=== PATIENT | female | born 1945 | race Caucasian/White ===

== ENCOUNTER 2019-09-18 07:48 | Outpatient (CLI) | payer MEDICARE, SELFPAY ==
--- NOTE | ~2019-09-18 | US_ITS ---
EXAMINATION: US venous doppler LE RT DATE: 09/18/2019 08:23 INDICATION: Right lower limb pain and swelling. TECHNIQUE: Grayscale ultrasound images without and with compression and Doppler ultrasound images of the right lower extremity veins were obtained. COMPARISON: None. FINDINGS: The visualized portions of right common femoral vein, profunda (deep) femoral vein, femoral vein, pop liteal vein, peroneal trunk, posterior tibial veins, peroneal veins, gastrocnemius vein and greater s aphenous vein outflow are patent. IMPRESSION: 1. No deep venous thrombosis in the right lower limb. Reviewed, dictated and finalized at location A.
== END 2019-09-18 07:49 | disposition home or self-care (01) ==
PROVIDERS: PCP Family Medicine; Visit Provider Family Medicine
DX: R60.9 Edema, unspecified (principal); S86.119A Strain of other muscle(s) and tendon(s) of posterior muscle group at lower leg level, unspecified leg, initial encounter
CPT/HCPCS: 93971

== ENCOUNTER 2020-07-29 16:05 | Outpatient (CLI) | payer MEDICARE, SELFPAY | END 2020-07-29 16:06 | disposition home or self-care (01) | LOC: ANHCOVIDVC 16:05 | PROVIDERS: PCP Family Medicine | DX: Z23 Encounter for immunization (principal) | CPT/HCPCS: 0001A; 91300 ==

== ENCOUNTER 2020-08-19 15:57 | Outpatient (CLI) | payer MEDICARE, SELFPAY | END 2020-08-19 15:58 | disposition home or self-care (01) | LOC: ANHCOVIDVC 15:57 | PROVIDERS: PCP Family Medicine | DX: Z23 Encounter for immunization (principal) | CPT/HCPCS: 0002A; 91300 ==

== ENCOUNTER → 2020-09-16 10:08 | Outpatient (CLI) | payer MEDICARE, SELFPAY ==
--- NOTE | ~2020-09-16 | DEXA_ITS ---
Bone Density Report Name: Lyudmila Chauhan Age: 75 Sex: Female Ethnicity: White Date of : 1945 Indication: postmenopausal; screening for osteoporosis; Referring Provider: DUNCAN MOMIN Study: Bone densitometry was performed. Exam Date: September 16, 2020 Accession number: [id number] Bone Density: Region BMD T-score Z-score Classification AP Spine (L1, L2, L3) 1.065 0.4 2.8 Normal Femoral Neck (Left) 0.655 -1.8 0.4 Osteopenia Total Hip (Left) 0.916 -0.2 1.6 Normal Femoral Neck (Right) 0.701 -1.3 0.8 Osteopenia Total Hip (Right) 0.833 -0.9 1.0 Normal Total Hip Mean 0.875 -0.6 1.3 Normal World Health Organization criteria for BMD impression classify patients as: Normal (T-score at or above -1.0), Osteopenia (T-score between -1.0 and -2.5), or Osteoporosis (T-score at or below -2.5). 10-year Fracture Risk(1): Major Osteoporotic Fracture 12% Hip Fracture 2.7% Reported Risk Factors: [place] (), Neck BMD=0.655, BMI=32.1 (1) FRAX(R) Version 3.08. Fracture probability calculated for an untreated patient. Fracture probability may be lower if the patient has received treatment. Previous Exams: Region Exam Age BMD T-score BMD Change BMD Change Date g/cm2 vs Baseline vs Previous AP Spine(L1, L2, L3) 09/16/2020 75 1.065 0.4 -0.056* -0.102* 07/15/2018 73 1.167 1.4 0.045* 0.045* 03/14/2016 70 1.122 0.9 Total Hip(Left) 09/16/2020 75 0.916 -0.2 -0.053* -0.025 07/15/2018 73 0.942 0.0 -0.028* -0.028* 03/14/2016 70 0.970 0.2 Total Hip(Right) 09/16/2020 75 0.833 -0.9 -0.118* -0.049* 07/15/2018 73 0.882 -0.5 -0.069* -0.069* 03/14/2016 70 0.951 0.1 *Denotes significance at 95% confidence level, LSC for AP Spine = 0.022 g/cm2, LSC for Total Hip = 0.027 g/cm2 Clinical Information Provided by Patient: Patient maximum height was 64 Menopause Age: 48 No regular weight bearing exercise Does not regularly consume dairy products Drinks caffeinated beverages Onset of menses at age 12 Number of children 1 Impression: The patient has low bone mass, based on the Left Femoral Neck T-score. The patient has an estimated ten-year risk of hip fracture of 2.7% and an estimated ten-year risk of major fracture of 12%, based on the WHO FRAX algorithm. The BMD for the AP Spine(L1, L2, L3) decreased, changing by -0.102
== END ==
PROVIDERS: PCP Family Medicine; Visit Provider Family Medicine
DX: M85.88 Other specified disorders of bone density and structure, other site (principal); M85.851 Other specified disorders of bone density and structure, right thigh
CPT/HCPCS: 77080

== ENCOUNTER 2020-10-21 10:08 | Outpatient (CLI) | payer MEDICARE, SELFPAY ==
--- NOTE | ~2020-10-21 | NM_ITS ---
EXAMINATION: NM vineet stress w perfusion DATE: 10/21/2020 13:16 INDICATION: Dyspnea on exertion. TECHNIQUE: Rest images were obtained following intravenous administration of 9 mCi Tc99m tetrofosmin (Myoview). The patient was infused intravenously with Lexiscan (regadenoson). Then, 30.6 mCi Tc99m te trofosmin (Myoview) was administered intravenously, and stress images were obtained. Data was reconst ructed into short axis and horizontal and vertical long axis SPECT images. Gated SPECT images were al so obtained. COMPARISON: Chest CT 01/25/2017 FINDINGS: There is no definite reversible or fixed perfusion abnormality to suggest ischemia or infar ction. There is no segmental wall motion abnormality. Left ventricular ejection fraction measures 6 4%. IMPRESSION: 1. No definite ischemia or infarct. 2. Normal left ventricular ejection fraction measuring 64%. Reviewed, dictated and finalized at location A.
--- NOTE | 2020-10-21 10:26 | EST_ITS ---
Patient Info Name: Lyudmila Chauhan Age: 75 years : 1945 Gender: Female Ht: 64 in Wt: 180 lbs BSA: 1.95 m2 Exam Date: 10/21/2020 11:08 AM Exam Location: [facility] Stress Patient Status: Outpatient Admit Date: 10/21/2020 Staff Ordering Physician: Brett Israel MD Attending Provider: Brett Israel MD Exercise Technologist: Kianna Self RD Exercise Physician: Cosmo Valencia DO Exam Type: CA stress vineet w NM Study Info A regadenoson stress test was performed. Summary 1. 1. Negative lexiscan stress test for ischemic ST changes by ECG criteria. 2. 2. Baseline sinus bradycardia and hypertension. 3. 3. Nuclear scan to follow and will be reported separately. Please correlate with it. 4. 4. Patient informed of the above results. Protocol: Lexiscan Stress ECG Details Stage: REST Duration (min): 8 min : 41 sec HR (bpm): 45 SBP (mmHg): 147 DBP (mmHg): 64 Stage: REST Duration (min): 11 min : 4 sec HR (bpm): 45 SBP (mmHg): 147 DBP (mmHg): 64 Stage: STAGE 1 Duration (min): 1 min : 0 sec HR (bpm): 53 SBP (mmHg): 147 DBP (mmHg): 65 Stage: RECOVERY Duration (min): 1 min : 0 sec HR (bpm): 62 SBP (mmHg): 147 DBP (mmHg): 65 Stage: RECOVERY Duration (min): 2 min : 0 sec HR (bpm): 64 SBP (mmHg): 174 DBP (mmHg): 68 Stage: RECOVERY Duration (min): 3 min : 0 sec HR (bpm): 62 SBP (mmHg): 193 DBP (mmHg): 67 Stage: RECOVERY Duration (min): 4 min : 0 sec HR (bpm): 59 SBP (mmHg): 193 DBP (mmHg): 67 Stage: RECOVERY Duration (min): 5 min : 0 sec HR (bpm): 59 SBP (mmHg): 169 DBP (mmHg): 66 Stage: RECOVERY Duration (min): 6 min : 0 sec HR (bpm): 58 SBP (mmHg): 169 DBP (mmHg): 66 Stage: RECOVERY Duration (min): 7 min : 0 sec HR (bpm): 58 SBP (mmHg): 162 DBP (mmHg): 66 Stage: RECOVERY Duration (min): 8 min : 0 sec HR (bpm): 58 SBP (mmHg): 162 DBP (mmHg): 66 Stage: RECOVERY Duration (min): 9 min : 0 sec HR (bpm): 57 SBP (mmHg): 151 DBP (mmHg): 65 Stage: RECOVERY Duration (min): 10 min : 0 sec HR (bpm): 54 SBP (mmHg): 151 DBP (mmHg): 65 Stage: RECOVERY Duration (min): 11 min : 0 sec HR (bpm): 55 SBP (mmHg): 153 DBP (mmHg): 64 Stage: RECOVERY Duration (min): 11 min : 1 sec HR (bpm): 55 SBP (mmHg): 153 DBP (mmHg): 64 Rest HR: 45 bpm Peak HR: 65 bpm Rest Sys BP: 147 mmHg Peak Sys BP: 193 mmHg Max Pred HR: 144 bpm % Max Pred HR: 45 % Target HR: 122 bpm Max RPP: 12,545 bpm*mmHg Termination Reason: Completed protocol Cardiac Symptoms: Shortness of breath Total Time: 1 min : 0 sec Rest Garnica BP: 64 mmHg Peak Garnica BP: 67 mmHg Total Dose: 0.4 mg Resting ECG Sinus bradycardia at 40 bpm, first degree AV block, IV
== END 2020-10-21 10:09 | disposition home or self-care (01) ==
PROVIDERS: PCP Family Medicine; Visit Provider Family Medicine
DX: R06.00 Dyspnea, unspecified (principal)
CPT/HCPCS: 78452; 93017; A9502; J2785

== ENCOUNTER 2020-11-15 07:23 | Outpatient (CLI) | payer MEDICARE, SELFPAY ==
--- NOTE | ~2020-11-15 | XR_ITS ---
XR barium swallow w SBFT DATE: 11/15/2020 10:14 INDICATION: Dysphagia. Abdominal pain TECHNIQUE: Air-contrast examination. Rapid sequence cine images of the esophagus during swallowing in anteroposterior, lateral and oblique views. Spot and overhead radiographs of the esophagus, stomach and duodenum. Serial images of the small bowel. Spot images of the terminal ileum. Exam dose: 106.843 mGy-cm total exam DLP. 2.4 minutes fluoroscopy time 27 images COMPARISON: 01/23/2017 CT chest FINDINGS: There is posterior impression upon the upper thoracic esophagus consistent with aberrant or igin of the right subclavian artery documented on 01/25/2017 CT thorax examination. Small sliding hiatal hernia. No stricture, mucosal fold thickening, erosion or ulceration or intraluminal mass lesion of the esoph juan is detected. The stomach and duodenum appear normal. Normal transit of contrast material through the small bowel. No stricture, mucosal fold thickening, ulceration, intraluminal mass lesion or diverticulum of the du odenum, jejunum or ileum is noted. Spot images of the terminal ileum reveal no abnormality. Surgical clips, right upper quadrant, consistent with cholecystectomy. IMPRESSION: Aberrant right subclavian artery impressing the posterior aspect of the proximal thoracic esophagus Small sliding hiatal hernia Status post cholecystectomy Normal small bowel Reviewed, dictated and finalized at Location A. Reviewed, dictated and finalized at location A.
== END 2020-11-15 07:24 | disposition home or self-care (01) ==
PROVIDERS: PCP Family Medicine; Visit Provider Family Medicine
DX: R13.10 Dysphagia, unspecified (principal); K44.9 Diaphragmatic hernia without obstruction or gangrene; Z90.49 Acquired absence of other specified parts of digestive tract
CPT/HCPCS: 74240

== ENCOUNTER 2020-12-01 14:30 | Outpatient (CLI) | payer MEDICARE, SELFPAY ==
--- NOTE | 2020-12-02 16:52 | WPDSIXMINUTE ---
Six Minute Walk Procedure Procedure Performed Pulmonary Stress Test (6 min walk) Six Minute Walk This is a 6 minutes walk test. The test was performed and interpreted in accordance with the 2014 ERS/ATS task force guidelines. Findings: The patient's resting room air oxygen saturation measured by pulse oximetry was 94% and her heart rate was 71 bpm. Patient ambulated for 213 meters and oxygen saturation remained 91% to 94%. Heart rate at the end of the study was 97 bpm. The patient did not qualify for supplemental oxygen at rest or with ambulation. There are no prior studies for comparison.
--- NOTE | 2020-12-02 16:53 | WPDPFTINT ---
PFT Procedure Performed PFT Procedure Performed Plethysmography (Lung Vol) Diffusing Cap (DLCO) Flow Vol Loop Spirometry w/o Bronchodil PFT Interpretation This is a pulmonary function test with spirometry, plethysmography and diffusing capacity. The test was performed and results interpreted in accordance with the 2019 and 2005 ATS/ERS Task Force guidelines respectively using the Global Lung Function Initiative-2012 reference equations. Patient demonstrated good effort and cooperation. Reproducibility criteria were met. The quality of the spirometry maneuver was Grade B. Findings: Spirometry: There is decreased maximal expiratory airflow at all lung volumes with a concave expiratory flow tracing. The FVC is 2.19 L, 82% predicted. The FEV1 is 1.18 L, 57% predicted. The FEV1: FVC ratio is 54%. Plethysmography: The total lung capacity is 4.28 L, 84% predicted. The functional residual capacity is 2.68, 92% predicted. The residual volume is 2.08, 90% predicted. Diffusing capacity: The absolute diffusion capacity 10.4, 53% predicted. The diffusing capacity corrected for alveolar volume is 3.38, 81% predicted. Impression: There is a moderately severe obstructive abnormality. The lung volumes are normal. The absolute diffusing capacity is moderately decreased and normalizes when corrected for alveolar volume. There are no prior studies for comparison
== END 2020-12-01 14:31 | disposition home or self-care (01) ==
LOC: ANHPFT 14:32
PROVIDERS: PCP Family Medicine; Visit Provider Family Medicine
DX: C34.92 Malignant neoplasm of unspecified part of left bronchus or lung (principal); J44.9 Chronic obstructive pulmonary disease, unspecified; R06.00 Dyspnea, unspecified
CPT/HCPCS: 94375; 94618; 94726; 94729

== ENCOUNTER 2020-12-28 23:44 | Emergency (ER) | payer MEDICARE, SELFPAY ==
--- NOTE | ~2020-12-28 | CT_ITS ---
EXAMINATION: CT abdomen pelvis wo con DATE: 12/29/2020 01:03 INDICATION: Epigastric abdominal pain for 3 months, with nausea, vomiting, diarrhea TECHNIQUE: Computed tomography (CT) of the abdomen and pelvis was performed without intravenous contr ast. Automated exposure control and iterative reconstruction technique were employed. Exam dose: 560 .70 mGy-cm total exam DLP. COMPARISON: 09/03/2007 CT abdomen FINDINGS: The lung bases are clear of infiltrate or consolidation. Heart size is within normal range. No pericardial or pleural effusion. Small sliding hiatal hernia. Status post cholecystectomy. There are calcified hepatic and splenic nodes consistent with old granul omatous disease. No hepatic space-occupying mass lesion is evident. No bile duct or pancreatic duct dilatation. No brown creatic mass lesion or calcification. Normal splenic size. Normal morphology of the adrenal glands. Approximately 3.3 mm nonobstructing right renal calculus. A couple of pinpoint left renal nonobstruct ing calculi are noted. No ureteral calculus or hydroureteronephrosis is noted on either side. The uri nary bladder is relatively evacuated and not optimally evaluated. The uterus and adnexal areas are un remarkable. There is extensive calcification of the abdominal aorta and prominent calcification at the origin the celiac and particularly the superior mesenteric artery as well as extensive calcification along the SMA. Bilateral renal artery calcifications. No abdominal aortic aneurysm. Prominent iliac and femoral artery calcifications. No intraperitoneal or retroperitoneal or pelvic mass lesion or adenopathy or ascites. There is barium within numerous diverticula of the sigmoid and descending colon and splenic flexure. No CT evidence of diverticulitis. Normal appendix. No bowel obstruction, bowel wall thickening, pneum atosis or intraperitoneal free air is detected. Old healed anterior left sixth and seventh rib fractures. No suspicious osteolytic or osteoblastic le sions are noted. IMPRESSION: Small sliding hiatal hernia Status post cholecystectomy Small nonobstructing renal calculi; no urinary tract calculus or hydroureteronephrosis Diverticulosis of the left colon; no CT evidence of diverticulitis Normal appendix Reviewed, dictated and finalized at Location A. Reviewed, dictated and finalized at location A. IMPRESSION: Small sliding hiatal hernia Status post cholecystectomy Small nonobstructing renal calculi; no urinary tract calculus or hydroureterone phrosis Diverticulosis of the left colon; no CT evidence of diverticulitis Normal appendix
[2020-12-28 23:45] VITALS: BP 147/73; PULSE 101; RESP 18; TEMP 36.2; O2SAT 100
[2020-12-29 00:30] LABS: Basophils Absolute Auto 0.1 K/mm3 (0.0-0.1); Basophils Percent Auto 0.5 % (0.2-1.2); Eosinophils Absolute Auto 0.1 K/mm3 (0-0.3); Eosinophils Percent Auto 0.5 % (0-4.4); Hematocrit 46.3 % (37.0-47.0); Hemoglobin 14.4 g/dL (12.0-15.0); Immature Granulocyte Absolute 0.06 K/mm3 (0.00-0.031); Immature Granulocyte Percent A 0.5 % (0-0.5); Lymphocytes Absolute Auto 2.65 K/mm3 (0.9-3.2); Lymphocytes Percent Auto 21.8 % (18.3-44.2); Mean Corpuscular HGB Conc 31.1 g/dl (32-36); Mean Corpuscular Hemoglobin 29.8 pg (26-34); Mean Corpuscular Volume 95.7 fl (80-100); Mean Platelet Volume 9.7 fl (7.4-10.4); Monocytes Absolute Auto 0.9 K/mm3 (0.1-0.6); Monocytes Percent Auto 7.6 % (2.6-8.5); Neutrophils Absolute Auto 8.4 K/mm3 (1.3-6.7); Neutrophils Percent Auto 69.1 % (45.5-73.1); Platelet Count Result 367 k/mm3 (150-375); Red Blood Count 4.84 M/mm3 (4.2-5.4); White Blood Count 12.2 K/mm3 (4.5-10.0)
--- NOTE | 2020-12-29 00:30 | ED.NAVMDI ---
HPI - Nausea/Vomiting/Diarrhea General Chief complaint: Nausea/Vomiting/Diarrhea Stated complaint: vomiting intermittently x3 wks Time Seen by Provider: 12/29/20 00:20 History of Present Illness HPI Narrative: Patient presents with nausea vomiting and diarrhea. Reports symptoms started 1 to 2 weeks ago and getting progressively worse and reports she is been unable to eat or drink anything for the past 3 days. Pain reports her symptoms started when her PCM put her on medications for her diabetes. She denies fevers. Reports burning sensation in her epigastric area that is constant, worse with vomiting, no radiation. Denies any urinary symptoms she denies any blood or bile or melena. Related Data Home Medications Medication Instructions Recorded Confirmed aspirin 81 mg tablet,delayed 81 mg PO DAILY 06/01/19 11/03/20 release Allergies Allergy/AdvReac Type Severity Reaction Status Date / Time amoxicillin Allergy Mild Anaphylactic Verified 11/03/20 15:51 Shock azithromycin Allergy Unknown Unknown Verified 11/03/20 15:51 Review of Systems Review of Systems: CONSTITUTIONAL: Denies fever, chills, or sweats. EYES: Denies visual changes, redness, or discharge. ENT: Denies rhinorrhea, congestion, sore throat, or otalgia. CARDIOVASCULAR: Denies chest pain, palpitations, or edema. RESPIRATORY: Denies cough or dyspnea. GASTROINTESTINAL: She reports abdominal pain nausea vomiting and diarrhea GENITOURINARY: Denies dysuria or hematuria. SKIN: Denies rash or itching. MUSCULOSKELETAL: Denies back pain, joint pain, or myalgia. NEUROLOGIC: Denies headache, numbness, dizziness, or weakness. PSYCHIATRIC: Denies anxiety or depression. All systems reviewed & are unremarkable except as noted in HPI and below PMFSH Past Medical History Medical History COPD (chronic obstructive pulmonary disease) History of bone density study (~03/14/16) dexa History of measles History of mumps History of varicella Obesity (BMI 30.0-34.9) Surgical History Surgical History H/O total hysterectomy History of arthroscopy of knee (~2007) History of cardiac cath History of lobectomy of lung (~08/09/17) History of tubal ligation (~1983) Social History Social History Alcohol intake: current Exam Narrative: GENERAL: Well-appearing, well-nourished, and in no acute distress. HEAD: Normocephalic, atraumatic. EYES: PERRLA and EOMI. ENT: Nares clear, no rhinorrhea or epistaxis. Mucous membranes moist. NECK: Supple. No masses. No JVD CHEST: Clear to auscultation. No respiratory distress. No wheezes rales or rhonchi HEART: Regular rate and rhythm. No murmur heard. Normal peripheral pulses. ABDOMEN: Moderate tenderness in the epigastric area soft, nondistended, normal active bowel sounds. EXTREMITIES: Normal range of motion. No edema. SKIN: Warm, dry, no rash. NEURO: No focal deficits. Alert and oriented x3. PSYCH: Normal mood and affect. Course Reevaluation(s) Reevaluation #1: Patient reports feeling much improved imaging results reviewed with patient patient comfortable with continued outpatient work-up with PCM and GI physician Date: 12/29/20 Time: 02:07 Vital Signs Vital signs: Vital Signs Temperature 36.2 C L 12/28/20 23:45 Pulse Rate 101 H 12/28/20 23:45 Respiratory Rate 18 12/28/20 23:45 Blood Pressure 147/73 H 12/28/20 23:45 Pulse Oximetry 100 12/28/20 23:45 Temperature 36.2 C L 12/28/20 23:45 Pulse Rate 74 12/29/20 03:57 Respiratory Rate 20 12/29/20 03:57 Blood Pressure 141/64 H 12/29/20 03:57 Pulse Oximetry 97 12/29/20 03:57 MDM - Nausea/Vomiting/Diarrhea MDM Narrative Medical decision making narrative: H&P as above, vs with mild hypertension, pt looks clinically well, exam benign her abdominal pain, labs with elevated LFTs and cr
[2020-12-29 00:42] LABS: Alanine Aminotransferase 53 U/L (4-35); Albumin Level 5.2 g/dL (3.5-5.1); Alkaline Phosphatase 92 U/L (38-126); Anion Gap 14 mmol/L (8-16); Aspartate Amino Transferase 90 U/L (14-36); Bilirubin,Total 3.6 mg/dL (0.2-1.3); Blood Urea Nitrogen 20 mg/dL (7-17); Calcium 10.8 mg/dL (8.4-10.2); Carbon Dioxide 25 mmol/L (22-30); Chloride 99 mmol/L (98-107); Estimated CRCL calculation 22 ml/min; Estimated Glomerular Filt Rate 23; Glucose 164 mg/dL (65-110); Lipase 141 U/L (23-300); Potassium 3.1 mmol/L (3.4-5.0); Sodium 138 mmol/L (137-145)
[2020-12-29] MEDS: SODIUM CHLORIDE 0.9% IV 1,000 ML 999 ML IV CONT (00:53)
[2020-12-29] MEDS: ONDANSETRON INJ 4 MG/2 ML VIAL IV PUSH (00:53)
[2020-12-29 01:55] VITALS: BP 135/62; PULSE 72; RESP 18; O2SAT 97
[2020-12-29 02:52] VITALS: BP 144/60; PULSE 78; RESP 20; O2SAT 98
[2020-12-29 03:57] VITALS: BP 141/64; PULSE 74; RESP 20; O2SAT 97
== END 2020-12-29 03:59 | disposition home or self-care (01) ==
PROVIDERS: Emergency Provider Emergency Medicine; PCP Family Medicine
DX: R11.2 Nausea with vomiting, unspecified (principal); R19.7 Diarrhea, unspecified; J44.9 Chronic obstructive pulmonary disease, unspecified; E66.9 Obesity, unspecified; Z68.31 Body mass index [BMI] 31.0-31.9, adult; K44.9 Diaphragmatic hernia without obstruction or gangrene; N20.0 Calculus of kidney; K57.90 Diverticulosis of intestine, part unspecified, without perforation or abscess without bleeding
CPT/HCPCS: 36415; 74176; 80053; 83690; 85025; 96361; 96374; 99284; J2405; J7030

== ENCOUNTER 2021-01-06 01:51 | Day surgery (SDC) | payer MEDICARE, SELFPAY ==
[2021-01-06 11:22] VITALS: BP 153/69; PULSE 80; RESP 16; TEMP 35.7; O2SAT 98
--- NOTE | 2021-01-06 11:48 | WPDANESEPPF ---
Anes - Initial Pre Proc Eval Procedure: Operation Date: 01/06/21 12:30 Proposed Procedures p Esophagogastroduodenoscopy - Reji Painting MD Date/Time: 01/06/21 11:48 Surgeon: Reji Painting MD Pre Op Diagnosis: epigastric pain Patient Data Age: 75 Gender: F Height: Weight: Last Vital Signs Temp 96.3 F L 01/06/21 11:22 Pulse 80 01/06/21 11:22 Resp 16 01/06/21 11:22 BP 153/69 H 01/06/21 11:22 Pulse Ox 98 01/06/21 11:22 Allergies Allergy/AdvReac Type Severity Reaction Status Date / Time amoxicillin Allergy Severe Anaphylactic Verified 01/06/21 11:31 Shock azithromycin Allergy Unknown Unknown Verified 01/06/21 11:31 Home Medications Medication Instructions Recorded Confirmed Type aspirin 81 mg tablet,delayed 81 mg PO DAILY 06/01/19 01/06/21 History release budesonide-formoterol HFA 160 2 puff INHALATION BID #30.6 gm 08/01/20 01/06/21 Rx mcg-4.5 mcg/actuation aerosol inhaler ondansetron 4 mg PO Q6-8H PRN #10 tablet 12/29/20 01/06/21 Rx amlodipine 10 mg PO DAILY 01/02/21 01/06/21 History atorvastatin 40 mg PO HS 01/02/21 01/06/21 History citalopram 20 mg PO DAILY 01/02/21 01/06/21 History levothyroxine 50 mcg PO DAILY 01/02/21 01/06/21 History lisinopril 20 mg PO DAILY 01/02/21 01/06/21 History Patient hx anesthesia problems: none Family hx anesthesia problems: none PMFSH Past Medical History Medical History COPD (chronic obstructive pulmonary disease) History of bone density study (~03/14/16) dexa History of measles History of mumps History of varicella Obesity (BMI 30.0-34.9) Surgical History Surgical History H/O total hysterectomy History of arthroscopy of knee (~2007) History of cardiac cath History of lobectomy of lung (~08/09/17) History of tubal ligation (~1983) Social History Social History Smoking packs per day: 0.75 Smoking cigarettes per day: 15.0 Years smoked: 35 Smoking pack-years: 26.25 Smoking status: Former smoker Tobacco type: cigarettes Alcohol intake: current Substance use: never Substance use type: does not use Living arrangements: alone Spiritual care concerns: No Anes - Eval Final PreProcedure Day of Procedure 01/06/21 11:48 Patient weight: obese Heart: regular rate and rhythm Lungs: clear to auscultation Airway: Mallampati scale class III Neurological: alert and oriented Last oral intake: >/= 8 hours ASA classification: III Emergent: no Anesthetic plan: proceed Anesthesia type and monitoring: general GIVS and standard monitoring Informed Consent: The patient's anesthetic plan and its attendant risks and benefits were discussed with the patient/family/POA. Questions were solicited and answers provided to the satisfaction of the patient/family/POA.
[2021-01-06] MEDS: LACTATED RINGERS 1,000 ML 150 ML IV CONT (11:53)
--- NOTE | 2021-01-06 11:54 | WPDGICN ---
Assessment and Plan Assessment and plan (1) Heartburn: Code(s): R12 - Heartburn Status: Acute Assessment and Plan: Patient has a chronic history of heartburn. Now with episodes of nausea vomiting attributed to new diabetic medication. Plan is for EGD assess or heartburn. She may benefit from more longer lasting acid suppression. Further recommendations will be given after endoscopy. (2) Irritable bowel syndrome with diarrhea: Code(s): K58.0 - Irritable bowel syndrome with diarrhea Status: Acute Assessment and Plan: Patient has a long history of irregular bowel habits consistent with irritable bowel syndrome. Fiber supplementation is advised at this time. (3) History of colon polyps: Code(s): Z86.010 - Personal history of colonic polyps Status: Acute Assessment and Plan: Patient has a history of colon polyps identified by colonoscopy 2019. Plan is for follow-up colonoscopy consider this at 5 year intervals. Would anticipate 2019 for having a follow-up endoscopy. GI Consult Note Consult date/time: 01/06/21 11:54 HPI: Lyudmila Chauhan is a 75 year old female Presents for EGD. Patient has a history of chronic heartburn for many years. Typically she takes Tums or Rolaids for relief of symptoms. She denies any dysphagia or bleeding. Several months ago was started on diabetic medication which prompted her to have recurrent nausea vomiting. This recurred even on different medication. She went to the emergency room and has had prompt relief on taking Zofran. She states she has only taken this a few times and only p.r.n. but it promptly relieves her nausea vomiting. She has had occasional irregular bowel movements. A colonoscopy by Dr. Gallo in 2019 revealed colon polyps. Review of Systems Review of Systems: All systems reviewed & are unremarkable except as noted in HPI and below PMFSH Past Medical History Medical History COPD (chronic obstructive pulmonary disease) History of bone density study (~03/14/16) dexa History of measles History of mumps History of varicella Obesity (BMI 30.0-34.9) Surgical History Surgical History H/O total hysterectomy History of arthroscopy of knee (~2007) History of cardiac cath History of lobectomy of lung (~08/09/17) History of tubal ligation (~1983) Social History Social History Smoking packs per day: 0.75 Smoking cigarettes per day: 15.0 Years smoked: 35 Smoking pack-years: 26.25 Smoking status: Former smoker Tobacco type: cigarettes Alcohol intake: current Substance use: never Substance use type: does not use Living arrangements: alone Spiritual care concerns: No Meds Home Medications and Allergies Home Medications Medication Instructions Recorded Confirmed Type aspirin 81 mg tablet,delayed 81 mg PO DAILY 06/01/19 01/06/21 History release budesonide-formoterol HFA 160 2 puff INHALATION BID #30.6 gm 08/01/20 01/06/21 Rx mcg-4.5 mcg/actuation aerosol inhaler ondansetron 4 mg PO Q6-8H PRN #10 tablet 12/29/20 01/06/21 Rx amlodipine 10 mg PO DAILY 01/02/21 01/06/21 History atorvastatin 40 mg PO HS 01/02/21 01/06/21 History citalopram 20 mg PO DAILY 01/02/21 01/06/21 History levothyroxine 50 mcg PO DAILY 01/02/21 01/06/21 History lisinopril 20 mg PO DAILY 01/02/21 01/06/21 History Allergies Allergy/AdvReac Type Severity Reaction Status Date / Time amoxicillin Allergy Severe Anaphylactic Verified 01/06/21 11:31 Shock azithromycin Allergy Unknown Unknown Verified 01/06/21 11:31 Vital Signs Vital Signs - 24 hr 01/06/21 11:22 Temperature 96.3 F L Pulse Rate 80 Respiratory Rate 16 Blood Pressure 153/69 H Pulse Oximetry 98 Exam Narrative: Physical exam reveals patient to be alert. Vital s
[2021-01-06 11:56] LABS: Glucose Point of Care 143 mg/dl (65-105)
[2021-01-06 12:12] VITALS: BP 135/54; PULSE 58; RESP 19; O2SAT 99
[2021-01-06 12:22] VITALS: BP 143/57; PULSE 55; RESP 19; O2SAT 100
[2021-01-06 12:32] VITALS: BP 138/60; PULSE 58; RESP 19; O2SAT 100
== END 2021-01-06 12:50 | disposition home or self-care (01) ==
PROVIDERS: PCP Family Medicine; Visit Provider Internal Medicine Gastroenterology
PROC: 0DJ08ZZ Inspection of Upper Intestinal Tract, Via Natural or Artificial Opening Endoscopic (ICD-10-PCS; CPT 43235; principal; 2021-01-06 12:30)
DX: K21.00 Gastro-esophageal reflux disease with esophagitis, without bleeding (principal); Q39.4 Esophageal web; K44.9 Diaphragmatic hernia without obstruction or gangrene; K58.0 Irritable bowel syndrome with diarrhea; Z86.010 Personal history of colon polyps; J44.9 Chronic obstructive pulmonary disease, unspecified; Z90.2 Acquired absence of lung [part of]; Z87.891 Personal history of nicotine dependence; Z79.82 Long term (current) use of aspirin; Z79.51 Long term (current) use of inhaled steroids
CPT/HCPCS: 43450; 43235; 82948; J2001; J2704; J7120

== ENCOUNTER 2022-05-08 14:06 | Outpatient (CLI) | payer MEDICARE, SELFPAY ==
[2022-05-08 15:00] LABS: SARS-CoV-2 RNA PCR Negative
== END 2022-05-08 14:07 | disposition home or self-care (01) ==
LOC: ANHLAB 14:07
PROVIDERS: PCP Family Medicine; Visit Provider Physician Assistant
DX: R05.9 Cough, unspecified (principal); R68.89 Other general symptoms and signs; Z20.822 Contact with and (suspected) exposure to COVID-19
CPT/HCPCS: U0003; U0005

== ENCOUNTER 2022-06-08 18:11 | Observation (INO) | payer MEDICARE, SELFPAY ==
[2022-06-08] VITALS (18 sets, daily range): BP systolic 122–149; BP diastolic 51–63; PULSE 66–106; RESP 14–37; TEMP 36.8; O2SAT 91–97
--- NOTE | ~2022-06-08 | XR_ITS ---
EXAMINATION: XR chest 2V DATE: 06/08/2022 19:06 INDICATION: Weakness and shortness of breath TECHNIQUE: PA and lateral views of the chest are obtained. COMPARISON: 01/10/2017 FINDINGS: The lungs are free of acute opacities. No pleural effusion or pneumothorax. The cardiomedia stinal silhouette is normal. There is moderate thoracic spondylosis. Elevation of the right hemidiaph ragm and suture lines near the right hilum are consistent with interval right upper lobectomy. IMPRESSION: 1. No acute cardiopulmonary abnormality. Reviewed, dictated and finalized at location F. BUYER
--- NOTE | ~2022-06-08 | NM_ITS ---
NM pulmonary perfusion 06/08/2022 23:59 Indication: Shortness of breath Procedure: Nuclear medicine perfusion images of the lung obtained in multiple projections following i njection of technetium 99m MAA. Comparison: Chest x-ray dated 06/08/2022 Findings: There is a perfusion defect at the right apex without corresponding chest x-ray abnormality . Otherwise, there is normal perfusion in both lungs. Impression: 1: Low probability for pulmonary embolism. Reviewed, dictated and finalized at location A. RNAL MEDICINE VETERINARY TECHNICIAN Impression: 1: Low probability for pulmonary embolism.
--- NOTE | ~2022-06-08 | CT_ITS ---
EXAMINATION: CT abdomen pelvis wo con DATE: 06/08/2022 21:39 INDICATION: Epigastric pain and nausea TECHNIQUE: Computed tomography (CT) of the abdomen and pelvis was performed without intravenous contr ast. The dose-length product (DLP) was 606.58 mGy-cm. Automated exposure control and iterative recons truction technique were employed. COMPARISON: 12/29/2020 FINDINGS: Minimal dependent atelectasis is present in the lung bases. The heart size is normal. There is a 10 mm nodule of the left lower lobe on image 12. A small sliding hiatal hernia is noted. There is calcified coronary artery atherosclerosis. The gallbladder is surgically absent. Punctate calcific ations in otherwise normal appearing liver and spleen likely represent healed granulomatous disease. The pancreas and adrenal glands are normal. Cysts of the kidneys measure up to 1.4 cm on the left. Th ere is a 9 mm exophytic mass at the lateral aspect of the left kidney lower pole measuring greater th an 70 Hounsfield units in attenuation, consistent with a hemorrhagic or proteinaceous cyst. There is a 3 mm nonobstructing stone of the right kidney lower pole. There is mild fat stranding surrounding t he right kidney. There also appears to be mild wall thickening of the urinary bladder. No pathologica lly enlarged abdominal or pelvic lymph nodes are identified. There is no free intraperitoneal gas or evidence of bowel obstruction. There is calcified atherosclerosis of the aorta and many of the other arteries. Colonic diverticulosis is present without evidence of diverticulitis. The appendix is román l. There is mild lumbar spondylosis. IMPRESSION: 1. Findings suggestive of urinary tract infection and possible mild right pyelonephritis. 2. Nonobstructing right nephrolithiasis. 3. Small sliding hiatal hernia. Reviewed, dictated and finalized at location F. IMEDIA PROJECT MANAGER IMPRESSION: 1. Findings suggestive of urinary tract infection and possible mild right pyelo nephritis. 2. Nonobstructing right nephrolithiasis. 3. Small sliding hiatal hernia.
--- NOTE | 2022-06-08 18:46 | ECG_ITS ---
Measurements Intervals [place] Rate: 75 P: 78 [place]: 191 QRS: -37 QRSD: 124 T: 76 QT: 402 QTc: 450 Interpretive Statements SINUS RHYTHM VENTRICULAR PREMATURE COMPLEXES LEFT AXIS DEVIATION INTRAVENTRICULAR CONDUCTION DELAY BORDERLINE R WAVE PROGRESSION, ANTERIOR LEADS BASELINE ARTIFACT- I, II, III, AVR, AVL, AVF, V1-V6 BORDERLINE ECG NO PREVIOUS ECG AVAILABLE FOR COMPARISON Electronically Signed On 06-09-2022 7:52:01 LOOP TENDER by Cosmo Valencia D.O.
--- NOTE | 2022-06-08 19:15 | ED.WEAKNESS ---
HPI - Weakness General Chief complaint: Weakness Stated complaint: shortness of breath and weakness for a week Time Seen by Provider: 06/08/22 18:31 Source: patient Mode of arrival: ambulatory Limitations: no limitations History of Present Illness HPI Narrative: Patient presents to the emergency department for exertional dyspnea, ongoing over the last week. Reports she has been having trouble catching her breath. Also reports she has had constant nausea without vomiting. Denies fever, chest pain, cough, or abdominal pain. Related Data Home Medications Medication Instructions Recorded Confirmed aspirin 81 mg tablet,delayed 81 mg PO DAILY 06/01/19 09/22/21 release Allergies Allergy/AdvReac Type Severity Reaction Status Date / Time amoxicillin Allergy Severe Anaphylactic Verified 06/08/22 22:03 Shock azithromycin Allergy Unknown Unknown Verified 06/08/22 22:03 Review of Systems Review of Systems: CONSTITUTIONAL: Denies fever ENT: Denies rhinorrhea, congestion, sore throat CARDIOVASCULAR: Denies chest pain, or edema. RESPIRATORY: Reports dyspnea. Denies cough GASTROINTESTINAL: Reports nausea and vomiting. Denies abdominal pain All systems reviewed & are unremarkable except as noted in HPI and below PMFSH Past Medical History Medical History (Updated 06/08/22 @ 22:45 by Noemi Wagoner PA-C) COPD (chronic obstructive pulmonary disease) Essential (primary) hypertension Heartburn History of bone density study (~03/14/16) dexa History of measles History of mumps History of varicella Hypothyroidism (acquired) Malignant neoplasm of unspecified part of left bronchus or lung Mixed hyperlipidemia Obesity (BMI 30.0-34.9) Surgical History Surgical History H/O total hysterectomy History of arthroscopy of knee (~2007) History of cardiac cath History of lobectomy of lung (~08/09/17) History of tubal ligation (~1983) Social History Social History Smoking packs per day: 0.75 Smoking cigarettes per day: 15.0 Years smoked: 35 Smoking pack-years: 26.25 Smoking status: Former smoker Tobacco type: cigarettes Alcohol intake: current Substance use: never Substance use type: does not use Lack of Transportation: No Lack of Food: Never True Current Housing: I Have Housing Concerned About Future Housing: No Difficulty Paying Gas/Electric Bills: No Difficulty Paying for Meds: No Currently Unemployed: No Education: High School Diploma/GED Difficulty w/ Childcare or Family Care: No Living arrangements: alone Spiritual care concerns: No Exam Narrative: GENERAL: Well-appearing, well-nourished, and in no acute distress. HEAD: Normocephalic, atraumatic. EYES: EOMI. ENT: Nares clear, no rhinorrhea or epistaxis. Mucous membranes moist. Oropharynx without tonsillar hypertrophy exudate or other lesions. NECK: Supple. No adenopathy or masses. CHEST: Clear to auscultation. No respiratory distress. No wheezes rales or rhonchi HEART: Regular rate and rhythm. No murmur heard. Normal peripheral pulses. ABDOMEN: Soft, nontender, nondistended, normal active bowel sounds. EXTREMITIES: Normal range of motion. No edema. SKIN: Warm, dry, no rash. NEURO: No focal deficits. Alert and oriented x3. PSYCH: Normal mood and affect RECTAL: Hemoccult negative Course Course Emergency Course: Patient and family updated on work-up and need for admission Consultations Consultation #1: Spoke with hospitalist about patient and work-up who accepts admission Date: 06/08/22 Vital Signs Vital signs: Vital Signs Temperature 98.3 F 06/08/22 18:15 Pulse Rate 85 06/08/22 18:15 Respiratory Rate 18 06/08/22 18:15 Blood Pressure 149/52 H 06/08/22 18:15 Pulse Oximetry 97 06/08/22 18:15 Oxygen Delivery Room Air 06/08/22 18:15 Temperature 98.3 F 06/08/22 18:15 Pulse Ra
[2022-06-08 19:21] LABS: Basophils Percent Auto 0.2 % (0.2-1.2); Eosinophils Absolute Auto 0.1 K/mm3 (0-0.3); Eosinophils Percent Auto 0.5 % (0-4.4); Hematocrit 32.9 % (37.0-47.0); Hemoglobin 10.8 g/dL (12.0-15.0); Immature Granulocyte Absolute 0.05 K/mm3 (0.00-0.031); Immature Granulocyte Percent A 0.5 % (0-0.5); Lymphocytes Absolute Auto 1.81 K/mm3 (0.9-3.2); Lymphocytes Percent Auto 18.5 % (18.3-44.2); Mean Corpuscular HGB Conc 32.8 g/dl (32-36); Mean Corpuscular Hemoglobin 28.6 pg (26-34); Mean Corpuscular Volume 87.3 fl (80-100); Monocytes Absolute Auto 0.9 K/mm3 (0.1-0.6); Monocytes Percent Auto 9.3 % (2.6-8.5); Neutrophils Absolute Auto 6.9 K/mm3 (1.3-6.7); Platelet Count Result 262 k/mm3 (150-375); Red Blood Count 3.77 M/mm3 (4.2-5.4); Red Cell Distribution Width 14.7 % (11.5-14.5); White Blood Count 9.8 K/mm3 (4.5-10.0)
--- NOTE | 2022-06-08 19:26 | PC.NURSE ---
pt ambulatory to bathroom with slow steady gait. pt unable to provide ua specimen at this time. sob noted upon arrival back to room with sat of 90% on monitor. upon rest pulse ox increasing to mid 90's
[2022-06-08 19:31] LABS: Alanine Aminotransferase 27 U/L (6-35); Albumin Level 3.6 g/dL (3.5-5.1); Alkaline Phosphatase 106 U/L (38-126); Anion Gap 9 mmol/L (8-16); Aspartate Amino Transferase 43 U/L (14-36); Bilirubin,Total 1.6 mg/dL (0.2-1.3); Blood Urea Nitrogen 25 mg/dL (7-17); Calcium 9.3 mg/dL (8.4-10.2); Carbon Dioxide 25 mmol/L (22-30); Chloride 98 mmol/L (98-107); Estimated CRCL calculation 24 ml/min; Estimated Glomerular Filt Rate 27; Glucose 168 mg/dL (65-110); Lipase 187 U/L (23-300); Potassium 3.4 mmol/L (3.4-5.0); Sodium 132 mmol/L (137-145)
[2022-06-08 19:42] LABS: INR 1.1; NT Pro B Type Natriuretic Pept 1930 pg/mL (19.9-100); Partial Thromboplastin Time 33.1 SECONDS (22.3-36.8); Prothrombin Time 13.5 Seconds (11.1-14.7); Troponin I 0.027 ng/mL (0.000-0.034)
[2022-06-08 19:58] LABS: Influenza A QL RT-PCR Negative (Negative); Influenza B QL RT-PCR Negative (Negative); SARS-CoV-2 RNA PCR Negative
[2022-06-08] MEDS: ONDANSETRON INJ 4 MG/2 ML VIAL IV PUSH (20:14)
[2022-06-08] MEDS: PANTOPRAZOLE SODIUM IV 40 MG VIAL IV PUSH (20:16)
[2022-06-08] MEDS: SODIUM CHLORIDE 0.9% IV 500 ML 999 ML IV CONT (20:17)
[2022-06-08 20:25] LABS: D Dimer 2.01 ug/mL (<0.48)
[2022-06-08 21:07] LABS: Appearance Urine Clear (Clear); Bilirubin Urine Negative (Negative); Blood Urine 1+ (Negative); Color Urine Yellow (Yellow); Glucose Urine UA Negative (Negative); Ketones Urine Negative (Negative); Leukocyte Esterase Ur 3+ LEU/UL (Negative); Nitrate Urine Negative (Negative); Protein Urine 2+ mg/dL (Negative); pH Urine 5.5 (5.0-9.0)
[2022-06-08 21:09] LABS: Add Urine Microscopic? YES; Bacteria Urine 4+ /hpf; Mucus Urine Rare /lpf; Squamous Epithelial Cell Urine Few /hpf (Few); WBC Urine >75 /hpf
--- NOTE | 2022-06-08 22:10 | PM.IMHP ---
H&P: HPI History of Present Illness Date/Time: 06/08/22 22:10 Chief Complaint: Weakness Narrative: This 76-year-old female with past medical history significant for COPD/emphysema, former tobacco user, hypothyroidism, GERD, hypertension. Patient presents to the emergency room due to generalized weakness for roughly a week had some nausea, vomiting had chills, rigors, patient denies any pain or burning with urination, no abdominal pain, has had poor appetite. Preliminary workup was significant for: A chest x-ray was reported as: FINDINGS: The lungs are free of acute opacities. No pleural effusion or pneumothorax. The cardiomediastinal silhouette is normal. There is moderate thoracic spondylosis. Elevation of the right hemidiaphragm and suture lines near the right hilum are consistent with interval right upper lobectomy. IMPRESSION: 1. No acute cardiopulmonary abnormality. A CT of abdomen and pelvis was reported as: FINDINGS: Minimal dependent atelectasis is present in the lung bases. The heart size is normal. There is a 10 mm nodule of the left lower lobe on image 12. A small sliding hiatal hernia is noted. There is calcified coronary artery atherosclerosis. The gallbladder is surgically absent. Punctate calcifications in otherwise normal appearing liver and spleen likely represent healed granulomatous disease. The pancreas and adrenal glands are normal. Cysts of the kidneys measure up to 1.4 cm on the left. There is a 9 mm exophytic mass at the lateral aspect of the left kidney lower pole measuring greater than 70 Hounsfield units in attenuation, consistent with a hemorrhagic or proteinaceous cyst. There is a 3 mm nonobstructing stone of the right kidney lower pole. There is mild fat stranding surrounding the right kidney. There also appears to be mild wall thickening of the urinary bladder. No pathologically enlarged abdominal or pelvic lymph nodes are identified. There is no free intraperitoneal gas or evidence of bowel obstruction. There is calcified atherosclerosis of the aorta and many of the other arteries. Colonic diverticulosis is present without evidence of diverticulitis. The appendix is normal. There is mild lumbar spondylosis. IMPRESSION: 1. Findings suggestive of urinary tract infection and possible mild right pyelonephritis. 2. Nonobstructing right nephrolithiasis. 3. Small sliding hiatal hernia. Review of Systems Review of Systems: Weakness, chills, rigors, poor appetite. Constitutional: Constitutional: Reports chills, Reports poor appetite and Reports weakness Eyes: Eyes: Denies change in vision ENT: Denies dysphagia and Denies odynophagia Cardiovascular: Cardiovascular: Denies chest pain, Denies lightheadedness, Denies radiating jaw, neck or arm pain and Denies palpitations Respiratory: Respiratory: Denies chest congestion, Denies cough, Denies excessive phlegm production, Denies pain on inspiration, Denies dyspnea and Denies wheezing Gastrointestinal: Gastrointestinal: Denies abdominal pain, Denies dyspepsia, Denies heartburn, Denies diarrhea, Reports nausea and Denies vomiting Genitourinary: Genitourinary: Denies dysuria Musculoskeletal: Musculoskeletal: Reports muscle weakness Integumentary/Breasts: Skin/Breast: Denies rash Neurologic: Denies focal weakness and Denies Sensory deficit (Neuro) Psychiatric: Psychiatric: Reports no additional psychiatric complaints and Reports as per HPI Endocrine: Endocrine: Denies cold intolerance, Denies flushing, Denies heat intolerance, Denies polyphagia, Denies polydipsia and Denies palpitations Hematologic/Lymphatic: Hematologic/Lymphatic: Reports no additional hematologic/lymphatic complaints and Reports as per HPI Allergic/Immunologic: Allergic/Immunologic: Reports no additional allergic/immunologic complaints and Reports as per HPI PMFSH Past Medical History Medical History (Updated 06/08/22 @ 22:45 by Noemi Wagoner PA-C) COPD (chronic obstructive pulmona
--- NOTE | 2022-06-08 23:33 | PC.NURSE ---
NM here at bedside at this time for pt testing.
[2022-06-09] VITALS (13 sets, daily range): BP systolic 122–147; BP diastolic 33–56; PULSE 58–89; RESP 14–22; TEMP 35.9–36.6; O2SAT 90–96; BMI 28.3
--- NOTE | 2022-06-09 00:02 | PC.NURSE ---
pt at scanning awaiting arrival
--- NOTE | 2022-06-09 00:02 | PC.NURSE ---
clarified medication with daughter and son-in-law.
--- NOTE | 2022-06-09 00:30 | ADMGEN ---
This patient, Lyudmila Chauhan, was admitted to 3 [facility] Surg Room 315-01. Patient/family oriented to hospital policies and general routines including ID bracelet, bed and alarms, visiting hours, pain management, procedures, bathroom and other care routines, personal items, smoking policy, room service/diet, and visiting hours. Information on how to activate the Rapid Response Team has been discussed. Patient/Family are encouraged to report perceived risks to care and to ask questions if they do not understand what they are told or what they should do. arrived at 0005 was at [place] pulmonary scan prior to coming to floor.
--- NOTE | 2022-06-09 00:41 | PC.NURSE ---
regular diet ordered for pt per MD Koo
[2022-06-09] MEDS: diphenhydrAMINE HCl CAP 25 MG CAPSULE PO (02:16)
[2022-06-09] MEDS: ACETAMINOPHEN 325 MG TABLET 650 MG PO (02:16)
[2022-06-09] MEDS: ALBUTEROL SULFATE NEB 2.5 MG/3 ML INH 5 MG INHALATION ×4 (02:42→20:20)
[2022-06-09] MEDS: IPRATROPIUM BR 0.02% INH SOLN 0.5 MG/2.5 ML VIAL INHALATION ×4 (02:43→20:19)
[2022-06-09] MEDS: lisinopriL 20 MG TABLET PO (09:28)
[2022-06-09] MEDS: ENOXAPARIN 30 MG/0.3 ML SYRINGE SUB-Q (09:28)
[2022-06-09] MEDS: ASPIRIN 81 MG ENTERIC TABLET PO (09:29)
[2022-06-09] MEDS: CITALOPRAM HYDROBROMIDE 20 MG TABLET PO (09:29)
[2022-06-09] MEDS: LEVOTHYROXINE SODIUM 75 MCG TABLET PO (09:29)
[2022-06-09] MEDS: PANTOPRAZOLE 40 MG TABLET PO ×2 (09:29→19:50)
[2022-06-09] MEDS: amLODIPine BESYLATE 5 MG TABLET 10 MG PO (09:33)
--- NOTE | 2022-06-09 10:15 | PM.IMPN ---
Progress Note: A&P Assessment and Plan (1) Acute UTI: Code(s): N39.0 - Urinary tract infection, site not specified Status: Acute Assessment and Plan: Presented with increased weakness UA does appear infectious with 3+ leukocyte esterase, >75 WBCs, 4+ bacteria Started on Levaquin in ED, change to ceftriaxone Trend urine output Urine culture pending CT indicated acute cystitis (2) COPD (chronic obstructive pulmonary disease): Code(s): J44.9 - Chronic obstructive pulmonary disease, unspecified Status: Acute Assessment and Plan: Breathing treatments q.6 hours No in acute exacerbation CXR does not indicate any pulmonary abnormality (3) Acute on chronic kidney failure: Code(s): N17.9 - Acute kidney failure, unspecified; N18.9 - Chronic kidney disease, unspecified Status: Acute Assessment and Plan: BUN/Cr 25/1.80 upon admission Baseline creatinine appears to be 1.3-1.6 Urine labs Trend renal function Could be related to UTI Avoid nephrotoxic medication (4) Diabetes mellitus: Code(s): E11.9 - Type 2 diabetes mellitus without complications Status: Acute Assessment and Plan: Current Glucose 168 A1c 8.2 Not on any home medications Consider starting oral medications Continue to trend glucose Adjust therapy as indicated (5) Hypertension: Code(s): I10 - Essential (primary) hypertension Status: Acute Assessment and Plan: BP is 131/33 Continue amlodipine 10mg PO Daily, lisinopril 20mg PO daily Continue to trend labs Adjust therapy as indicated (6) Elevated d-dimer: Code(s): R79.89 - Other specified abnormal findings of blood chemistry Status: Acute Assessment and Plan: Dimer 2.01 Perfusion scan low probability for a PE No chest pain, shortness of breath, swelling noted No further work up indicated (7) Anemia: Code(s): D64.9 - Anemia, unspecified Status: Acute Assessment and Plan: H/H low at 10.0/31.5 Anemia labs in the am Supplement as indicated Trend H/H Transfuse if Hgb <7.0 Most likely anemia of chronic disease Could be contributing to her shortness of breath Time Spent With Patient Time: 56 minutes Time with patient: Greater than 35 minutes Subjective Date/time seen: 06/09/22 1015 Interval history: 06/09/22 1015 Patient is doing ok. She stated that she was able to eat. She did state that she was nauseous. Her daughter and daughter in law were present. Explained what was going on to them and answered all questions. She verbalized understanding. She did state that she knows she has diabetes, but was unable to tolerate the medications that she took. Spoke with Dr. Escamilla who stated to start her on glizide low dose, and see if she can tolerate that medication. She denies any chest pain, however stated that she has been short of breath, and is taking inhalers that do not seem to be effective at this time. H/H is a bit low. anemia labs in the am 06/08/22? 22:10 This 76-year-old female with past medical history significant for COPD/emphysema, former tobacco user, hypothyroidism, GERD, hypertension.? Patient presents to the emergency room due to generalized weakness for roughly a week had some nausea, vomiting had chills, rigors, patient denies any pain or burning with urination, no abdominal pain, has had poor appetite. Review of Systems Review of Systems: All systems reviewed & are unremarkable except as noted in HPI and below Exam Narrative: General: well-nourished, well-appearing 76-year-old female, sitting up in bed, comfortable, NARD Neuro: awake, alert and oriented x4, speech clear, no focal neuro deficits noted HEENMT: normocephalic, atraumatic, EOMI, sclerae anicteric, moist oral mucosa Respiratory: Clear
--- NOTE | 2022-06-09 10:15 | P.PNIM_ITS ---
Progress Note: A&P Assessment and Plan (1) Acute UTI: Code(s): N39.0 - Urinary tract infection, site not specified Status: Acute Assessment and Plan: * Presented with increased weakness * UA does appear infectious with 3+ leukocyte esterase, >75 WBCs, 4+ bacteria * Started on Levaquin in ED, change to ceftriaxone * Trend urine output * Urine culture pending * CT indicated acute cystitis (2) COPD (chronic obstructive pulmonary disease): Code(s): J44.9 - Chronic obstructive pulmonary disease, unspecified Status: Acute Assessment and Plan: * Breathing treatments q.6 hours * No in acute exacerbation * CXR does not indicate any pulmonary abnormality (3) Acute on chronic kidney failure: Code(s): N17.9 - Acute kidney failure, unspecified; N18.9 - Chronic kidney disease, unspecified Status: Acute Assessment and Plan: * BUN/Cr 25/1.80 upon admission * Baseline creatinine appears to be 1.3-1.6 * Urine labs * Trend renal function * Could be related to UTI * Avoid nephrotoxic medication (4) Diabetes mellitus: Code(s): E11.9 - Type 2 diabetes mellitus without complications Status: Acute Assessment and Plan: * Current Glucose 168 * A1c 8.2 * Not on any home medications * Consider starting oral medications * Continue to trend glucose * Adjust therapy as indicated (5) Hypertension: Code(s): I10 - Essential (primary) hypertension Status: Acute Assessment and Plan: * BP is 131/33 * Continue amlodipine 10mg PO Daily, lisinopril 20mg PO daily * Continue to trend labs * Adjust therapy as indicated (6) Elevated d-dimer: Code(s): R79.89 - Other specified abnormal findings of blood chemistry Status: Acute Assessment and Plan: * Dimer 2.01 * Perfusion scan low probability for a PE * No chest pain, shortness of breath, swelling noted * No further work up indicated (7) Anemia: Code(s): D64.9 - Anemia, unspecified Status: Acute Assessment and Plan: * H/H low at 10.0/31.5 * Anemia labs in the am * Supplement as indicated * Trend H/H * Transfuse if Hgb <7.0 * Most likely anemia of chronic disease * Could be contributing to her shortness of breath Time Spent With Patient Time: 56 minutes Time with patient: Greater than 35 minutes Subjective Date/time seen: 06/09/22 1015 Interval history: 06/09/22 1015 Patient is doing ok. She stated that she was able to eat. She did state that she was nauseous. Her daughter and daughter in law were present. Explained what was going on to them and answered all questions. She verbalized understanding. She did state that she knows she has diabetes, but was unable to tolerate the medications that she took. Spoke with Dr. Escamilla who stated to start her on glizide low dose, and see if she can tolerate that medication. She denies any chest pain, however stated that she has been short of breath, and is taking inhalers that do not seem to be effective at this time. H/H is a bit low. anemia labs in the am 06/08/22? 22:10 This 76-year-old female with past medical history significant for COPD/emphysema, former tobacco user, hypothyroidism, GERD,
[2022-06-09 10:19] LABS: Basophils Percent Auto 0.3 % (0.2-1.2); Eosinophils Percent Auto 0.4 % (0-4.4); Hematocrit 31.5 % (37.0-47.0); Immature Granulocyte Absolute 0.05 K/mm3 (0.00-0.031); Immature Granulocyte Percent A 0.7 % (0-0.5); Lymphocytes Absolute Auto 2.09 K/mm3 (0.9-3.2); Lymphocytes Percent Auto 27.3 % (18.3-44.2); Mean Corpuscular HGB Conc 31.7 g/dl (32-36); Mean Corpuscular Hemoglobin 28.2 pg (26-34); Mean Corpuscular Volume 88.7 fl (80-100); Mean Platelet Volume 9.7 fl (7.4-10.4); Monocytes Absolute Auto 0.8 K/mm3 (0.1-0.6); Monocytes Percent Auto 10.5 % (2.6-8.5); Neutrophils Absolute Auto 4.7 K/mm3 (1.3-6.7); Neutrophils Percent Auto 60.8 % (45.5-73.1); Platelet Count Result 225 k/mm3 (150-375); Red Blood Count 3.55 M/mm3 (4.2-5.4); Red Cell Distribution Width 14.5 % (11.5-14.5); White Blood Count 7.7 K/mm3 (4.5-10.0)
[2022-06-09 10:32] LABS: Potassium 2.9 mmol/L (3.4-5.0)
[2022-06-09 11:00] LABS: Alanine Aminotransferase 23 U/L (6-35); Albumin Level 3.3 g/dL (3.5-5.1); Alkaline Phosphatase 94 U/L (38-126); Anion Gap 8 mmol/L (8-16); Aspartate Amino Transferase 33 U/L (14-36); Bilirubin,Total 1.2 mg/dL (0.2-1.3); Blood Urea Nitrogen 18 mg/dL (7-17); Carbon Dioxide 26 mmol/L (22-30); Chloride 103 mmol/L (98-107); Estimated CRCL calculation 28 ml/min; Estimated Glomerular Filt Rate 34; Glucose 174 mg/dL (65-110); Sodium 137 mmol/L (137-145)
[2022-06-09] MEDS: POTASSIUM CHLORIDE INJ 40 MEQ in SODIUM CHLORIDE 0.9% IV 500 ML 130 MEQ IVPB (12:52)
[2022-06-09] MEDS: POTASSIUM CHLORIDE 20 MEQ TABLET 40 MEQ PO (12:53)
[2022-06-09] MEDS: ATORVASTATIN 40 MG TABLET PO (19:50)
[2022-06-10] MEDS: ACETAMINOPHEN 325 MG TABLET 650 MG PO (00:44)
[2022-06-10 06:00] VITALS: BP 134/62; PULSE 78; RESP 20; TEMP 36.4; O2SAT 95
[2022-06-10 06:17] LABS: Basophils Percent Auto 0.4 % (0.2-1.2); Eosinophils Absolute Auto 0.1 K/mm3 (0-0.3); Eosinophils Percent Auto 1.6 % (0-4.4); Hematocrit 30.2 % (37.0-47.0); Hemoglobin 9.5 g/dL (12.0-15.0); Immature Granulocyte Absolute 0.05 K/mm3 (0.00-0.031); Immature Granulocyte Percent A 0.7 % (0-0.5); Lymphocytes Absolute Auto 2.12 K/mm3 (0.9-3.2); Mean Corpuscular HGB Conc 31.5 g/dl (32-36); Mean Corpuscular Hemoglobin 28.4 pg (26-34); Mean Corpuscular Volume 90.4 fl (80-100); Mean Platelet Volume 9.7 fl (7.4-10.4); Monocytes Absolute Auto 0.7 K/mm3 (0.1-0.6); Monocytes Percent Auto 10.1 % (2.6-8.5); Neutrophils Absolute Auto 4.3 K/mm3 (1.3-6.7); Neutrophils Percent Auto 58.2 % (45.5-73.1); Platelet Count Result 237 k/mm3 (150-375); Red Blood Count 3.34 M/mm3 (4.2-5.4); Red Cell Distribution Width 14.6 % (11.5-14.5); White Blood Count 7.3 K/mm3 (4.5-10.0)
[2022-06-10 06:31] LABS: Alanine Aminotransferase 21 U/L (6-35); Albumin Level 3.1 g/dL (3.5-5.1); Alkaline Phosphatase 90 U/L (38-126); Anion Gap 5 mmol/L (8-16); Aspartate Amino Transferase 33 U/L (14-36); Bilirubin,Total 0.7 mg/dL (0.2-1.3); Blood Urea Nitrogen 12 mg/dL (7-17); Calcium 8.8 mg/dL (8.4-10.2); Carbon Dioxide 25 mmol/L (22-30); Chloride 109 mmol/L (98-107); Estimated CRCL calculation 32 ml/min; Estimated Glomerular Filt Rate 40; Glucose 124 mg/dL (65-110); Magnesium 1.8 mg/dL (1.6-2.3); Potassium 3.9 mmol/L (3.4-5.0); Sodium 139 mmol/L (137-145)
[2022-06-10 06:36] LABS: Transferrin 144 mg/dL (206-381)
--- NOTE | 2022-06-10 07:33 | P.PNIM_ITS ---
Progress Note: A&P Assessment and Plan (1) Acute UTI: Code(s): N39.0 - Urinary tract infection, site not specified Status: Acute Assessment and Plan: * Presented with increased weakness * UA does appear infectious with 3+ leukocyte esterase, >75 WBCs, 4+ bacteria * Started on Levaquin in ED, change to ceftriaxone * Trend urine output * Urine culture gram negative bacilli isolated * CT indicated acute cystitis (2) COPD (chronic obstructive pulmonary disease): Code(s): J44.9 - Chronic obstructive pulmonary disease, unspecified Status: Acute Assessment and Plan: * Breathing treatments q.6 hours * No in acute exacerbation * CXR does not indicate any pulmonary abnormality (3) Acute on chronic kidney failure: Code(s): N17.9 - Acute kidney failure, unspecified; N18.9 - Chronic kidney disease, unspecified Status: Acute Assessment and Plan: * BUN/Cr 25/1.80 upon admission * Current Creatinine is 1.30 * Baseline creatinine appears to be 1.3-1.6 * Urine labs * Trend renal function * secondary to urinary tract infection * Avoid nephrotoxic medication (4) Diabetes mellitus: Code(s): E11.9 - Type 2 diabetes mellitus without complications Status: Acute Assessment and Plan: * Current Glucose 124 * A1c 8.2 * Not on any home medications * Continue glipizide 1.25mg PO daily * Continue to trend glucose * Adjust therapy as indicated * Better control would help slow progression of the CKD (5) Hypertension: Code(s): I10 - Essential (primary) hypertension Status: Acute Assessment and Plan: * BP is 129/53 * Continue amlodipine 10mg PO Daily, lisinopril 20mg PO daily * Continue to trend labs * Adjust therapy as indicated (6) Elevated d-dimer: Code(s): R79.89 - Other specified abnormal findings of blood chemistry Status: Acute Assessment and Plan: * Dimer 2.01 * Perfusion scan low probability for a PE * No chest pain, shortness of breath, swelling noted * No further work up indicated (7) Anemia: Code(s): D64.9 - Anemia, unspecified Status: Acute Assessment and Plan: * H/H low at 9.5/30.2 * Anemia labs iron , TIBC , % sat , Transferrin , Ferritin , Folate , B12 375 * Supplement as indicated * Trend H/H * Transfuse if Hgb <7.0 * Most likely anemia of chronic disease * Could be contributing to her shortness of breath Time Spent With Patient Time: 48 minutes Time with patient: Greater than 35 minutes Subjective Date/time seen: 06/10/22 07:33 Interval history: 06/10/22 06/09/22 1015 Patient is doing ok. She stated that she was able to eat. She did state that she was nauseous. Her daughter and daughter in law were present. Explained what was going on to them and answered all questions. She verbalized unde rstanding. She did state that she knows she has diabetes, but was unable to tolerate the medications that she took. Spoke with Dr. Escamilla who stated to start her on glizide low dose, and see if she can tolerate that medication. She denies any chest pain, however stated that she has been short of breath, and is taking inhalers that do not seem to be effective at this t
--- NOTE | 2022-06-10 07:33 | PM.IMPN ---
Progress Note: A&P Assessment and Plan (1) Acute UTI: Code(s): N39.0 - Urinary tract infection, site not specified Status: Acute Assessment and Plan: Presented with increased weakness UA does appear infectious with 3+ leukocyte esterase, >75 WBCs, 4+ bacteria Started on Levaquin in ED, change to ceftriaxone Trend urine output Urine culture gram negative bacilli isolated CT indicated acute cystitis (2) COPD (chronic obstructive pulmonary disease): Code(s): J44.9 - Chronic obstructive pulmonary disease, unspecified Status: Acute Assessment and Plan: Breathing treatments q.6 hours No in acute exacerbation CXR does not indicate any pulmonary abnormality (3) Acute on chronic kidney failure: Code(s): N17.9 - Acute kidney failure, unspecified; N18.9 - Chronic kidney disease, unspecified Status: Acute Assessment and Plan: BUN/Cr 25/1.80 upon admission Current Creatinine is 1.30 Baseline creatinine appears to be 1.3-1.6 Urine labs Trend renal function secondary to urinary tract infection Avoid nephrotoxic medication (4) Diabetes mellitus: Code(s): E11.9 - Type 2 diabetes mellitus without complications Status: Acute Assessment and Plan: Current Glucose 124 A1c 8.2 Not on any home medications Continue glipizide 1.25mg PO daily Continue to trend glucose Adjust therapy as indicated Better control would help slow progression of the CKD (5) Hypertension: Code(s): I10 - Essential (primary) hypertension Status: Acute Assessment and Plan: BP is 129/53 Continue amlodipine 10mg PO Daily, lisinopril 20mg PO daily Continue to trend labs Adjust therapy as indicated (6) Elevated d-dimer: Code(s): R79.89 - Other specified abnormal findings of blood chemistry Status: Acute Assessment and Plan: Dimer 2.01 Perfusion scan low probability for a PE No chest pain, shortness of breath, swelling noted No further work up indicated (7) Anemia: Code(s): D64.9 - Anemia, unspecified Status: Acute Assessment and Plan: H/H low at 9.5/30.2 Anemia labs iron , TIBC , % sat , Transferrin , Ferritin , Folate , B12 375 Supplement as indicated Trend H/H Transfuse if Hgb <7.0 Most likely anemia of chronic disease Could be contributing to her shortness of breath Time Spent With Patient Time: 48 minutes Time with patient: Greater than 35 minutes Subjective Date/time seen: 06/10/22 07:33 Interval history: 06/10/22 06/09/22 1015 Patient is doing ok. She stated that she was able to eat. She did state that she was nauseous. Her daughter and daughter in law were present. Explained what was going on to them and answered all questions. She verbalized understanding. She did state that she knows she has diabetes, but was unable to tolerate the medications that she took. Spoke with Dr. Escamilla who stated to start her on glizide low dose, and see if she can tolerate that medication. She denies any chest pain, however stated that she has been short of breath, and is taking inhalers that do not seem to be effective at this time. H/H is a bit low. anemia labs in the am 06/08/22? 22:10 This 76-year-old female with past medical history significant for COPD/emphysema, former tobacco user, hypothyroidism, GERD, hypertension.? Patient presents to the emergency room due to generalized weakness for roughly a week had some nausea, vomiting had chills, rigors, patient denies any pain or burning with urination, no abdominal pain, has had poor appetite. Review of Systems Review of Systems: All systems reviewed & are unremarkable except as noted in HPI and below Exam Narrative: General: well-nourished, well-appearing 76-year-old female, sitting up in bed, comfortab
[2022-06-10 07:40] VITALS: PULSE 79; RESP 16; RESP 18; O2SAT 92
[2022-06-10] MEDS: IPRATROPIUM BR 0.02% INH SOLN 0.5 MG/2.5 ML VIAL INHALATION (07:40)
[2022-06-10] MEDS: ALBUTEROL SULFATE NEB 2.5 MG/3 ML INH 5 MG INHALATION (07:40)
[2022-06-10 07:50] VITALS: PULSE 76; RESP 18
[2022-06-10 07:56] LABS: Iron 27 ug/dL (37-170)
[2022-06-10] MEDS: lisinopriL 20 MG TABLET PO (07:59)
[2022-06-10] MEDS: PANTOPRAZOLE 40 MG TABLET PO (07:59)
[2022-06-10] MEDS: ENOXAPARIN 30 MG/0.3 ML SYRINGE SUB-Q (07:59)
[2022-06-10] MEDS: amLODIPine BESYLATE 5 MG TABLET 10 MG PO (07:59)
[2022-06-10] MEDS: CITALOPRAM HYDROBROMIDE 20 MG TABLET PO (07:59)
[2022-06-10] MEDS: ASPIRIN 81 MG ENTERIC TABLET PO (07:59)
[2022-06-10 08:03] LABS: Folic Acid 9.8 ng/mL (2.76->20)
[2022-06-10 08:05] LABS: Percent Iron Saturation 12 % (20-50)
--- NOTE | 2022-06-10 10:15 | P.DS_ITS ---
DS: Admitting Diagnosis Discharge Date 06/10/2022 1015 Admitting Diagnosis UTI, JALEESA, pyelonephritis DS: Discharge Diagnosis Discharge Diagnosis (1) Acute UTI: Code(s): N39.0 - Urinary tract infection, site not specified Status: Acute Assessment and Plan: * Presented with increased weakness * UA does appear infectious with 3+ leukocyte esterase, >75 WBCs, 4+ bacteria * Started on Levaquin in ED, change to ceftriaxone * Trend urine output * Urine culture Ecoli * Sensitive to ceftriaxone, convert to cefdinir * CT indicated acute cystitis (2) COPD (chronic obstructive pulmonary disease): Code(s): J44.9 - Chronic obstructive pulmonary disease, unspecified Status: Acute Assessment and Plan: * Breathing treatments q.6 hours * No in acute exacerbation * CXR does not indicate any pulmonary abnormality (3) Acute on chronic kidney failure: Code(s): N17.9 - Acute kidney failure, unspecified; N18.9 - Chronic kidney disease, unspecified Status: Acute Assessment and Plan: * BUN/Cr 25/1.80 upon admission * Current Creatinine is 1.30 * Baseline creatinine appears to be 1.3-1.6 * Urine labs * Trend renal function * secondary to urinary tract infection * Avoid nephrotoxic medication (4) Diabetes mellitus: Code(s): E11.9 - Type 2 diabetes mellitus without complications Status: Acute Assessment and Plan: * Current Glucose 124 * A1c 8.2 * Not on any home medications * Continue glipizide 1.25mg PO daily * Continue to trend glucose * Adjust therapy as indicated * Better control would help slow progression of the CKD (5) Hypertension: Code(s): I10 - Essential (primary) hypertension Status: Acute Assessment and Plan: * BP is 129/53 * Continue amlodipine 10mg PO Daily, lisinopril 20mg PO daily * Continue to trend labs * Adjust therapy as indicated (6) Elevated d-dimer: Code(s): R79.89 - Other specified abnormal findings of blood chemistry Status: Acute Assessment and Plan: * Dimer 2.01 * Perfusion scan low probability for a PE * No chest pain, shortness of breath, swelling noted * No further work up indicated (7) Anemia: Code(s): D64.9 - Anemia, unspecified Status: Acute Assessment and Plan: * H/H low at 9.5/30.2 * Anemia labs iron 27, TIBC 228, % sat 12, Transferrin 144, Ferritin 229, Folate 9.8, B12 375 * Add ferrous sulfate 325mg PO BID * Trend H/H * Transfuse if Hgb <7.0 * Iron deficient anemia * Could be contributing to her shortness of breath DS: Summary Hospital Course Hospital Course: Patient is 76-year-old female with a past medical history CKD, hypertension, hyperlipidemia, hypothyroidism, diabetes who presented to the ED with complaints of persistent nausea and vomiting, chills, weakness for 1 week. Urinalysis did appear infectious and urine culture did grow E coli. Patient was started on IV ceftriaxone and has been converted to p.o. cefdinir. A1c was noted to be 8.2. and patient was started on glipizide. Glucose has been better controlled. Patient was also noted to have a little bit of an JALEESA and her creatinine upon arrival was 1.8. Creatinine is back down to her baseline at 1.3.
--- NOTE | 2022-06-10 10:15 | PM.DS ---
DS: Admitting Diagnosis Discharge Date 06/10/2022 1015 Admitting Diagnosis UTI, JALEESA, pyelonephritis DS: Discharge Diagnosis Discharge Diagnosis (1) Acute UTI: Code(s): N39.0 - Urinary tract infection, site not specified Status: Acute Assessment and Plan: Presented with increased weakness UA does appear infectious with 3+ leukocyte esterase, >75 WBCs, 4+ bacteria Started on Levaquin in ED, change to ceftriaxone Trend urine output Urine culture Ecoli Sensitive to ceftriaxone, convert to cefdinir CT indicated acute cystitis (2) COPD (chronic obstructive pulmonary disease): Code(s): J44.9 - Chronic obstructive pulmonary disease, unspecified Status: Acute Assessment and Plan: Breathing treatments q.6 hours No in acute exacerbation CXR does not indicate any pulmonary abnormality (3) Acute on chronic kidney failure: Code(s): N17.9 - Acute kidney failure, unspecified; N18.9 - Chronic kidney disease, unspecified Status: Acute Assessment and Plan: BUN/Cr 25/1.80 upon admission Current Creatinine is 1.30 Baseline creatinine appears to be 1.3-1.6 Urine labs Trend renal function secondary to urinary tract infection Avoid nephrotoxic medication (4) Diabetes mellitus: Code(s): E11.9 - Type 2 diabetes mellitus without complications Status: Acute Assessment and Plan: Current Glucose 124 A1c 8.2 Not on any home medications Continue glipizide 1.25mg PO daily Continue to trend glucose Adjust therapy as indicated Better control would help slow progression of the CKD (5) Hypertension: Code(s): I10 - Essential (primary) hypertension Status: Acute Assessment and Plan: BP is 129/53 Continue amlodipine 10mg PO Daily, lisinopril 20mg PO daily Continue to trend labs Adjust therapy as indicated (6) Elevated d-dimer: Code(s): R79.89 - Other specified abnormal findings of blood chemistry Status: Acute Assessment and Plan: Dimer 2.01 Perfusion scan low probability for a PE No chest pain, shortness of breath, swelling noted No further work up indicated (7) Anemia: Code(s): D64.9 - Anemia, unspecified Status: Acute Assessment and Plan: H/H low at 9.5/30.2 Anemia labs iron 27, TIBC 228, % sat 12, Transferrin 144, Ferritin 229, Folate 9.8, B12 375 Add ferrous sulfate 325mg PO BID Trend H/H Transfuse if Hgb <7.0 Iron deficient anemia Could be contributing to her shortness of breath DS: Summary Hospital Course Hospital Course: Patient is 76-year-old female with a past medical history CKD, hypertension, hyperlipidemia, hypothyroidism, diabetes who presented to the ED with complaints of persistent nausea and vomiting, chills, weakness for 1 week. Urinalysis did appear infectious and urine culture did grow E coli. Patient was started on IV ceftriaxone and has been converted to p.o. cefdinir. A1c was noted to be 8.2. and patient was started on glipizide. Glucose has been better controlled. Patient was also noted to have a little bit of an JALEESA and her creatinine upon arrival was 1.8. Creatinine is back down to her baseline at 1.3. Blood pressure has been stable throughout the entire visit. Patient was also noted to have a mild anemia which is most likely somewhat related to chronic disease however she did have low iron and iron has been started. Patient also complained of shortness of breath upon arrival. V/Q scan was performed due to renal failure. V/Q scan said low probability for PE. Patient denied any chest pain however she does have COPD and uses inhalers at home. Shortness of breath could also be related to the anemia. Currently patient is stable for discharge for labs and vital signs. Patient will be discharged on oral antibiotics. Patient denied
[2022-06-10] MEDS: polyethylene glycoL 3350 17 GM POWD.PACK PO (10:45)
[2022-06-10] MEDS: DOCUSATE SODIUM 100 MG CAPSULE PO (10:45)
[2022-06-10] MEDS: FERROUS SULFATE 324 MG TABLET PO (10:45)
== END 2022-06-10 13:40 | disposition home or self-care (01) ==
LOC: ANHED 22:45 → ANH3MEDSUR 23:33
PROVIDERS: Nurse Practitioner; Physician Assistant; Admitting Provider Internal Medicine; Emergency Provider Emergency Medicine; PCP Family Medicine; Visit Provider Internal Medicine
DX: N39.0 Urinary tract infection, site not specified (principal); R06.02 Shortness of breath; J44.9 Chronic obstructive pulmonary disease, unspecified; E78.2 Mixed hyperlipidemia; Z85.118 Personal history of other malignant neoplasm of bronchus and lung; Z90.2 Acquired absence of lung [part of]; Z87.891 Personal history of nicotine dependence; K21.9 Gastro-esophageal reflux disease without esophagitis; E11.21 Type 2 diabetes mellitus with diabetic nephropathy; R79.89 Other specified abnormal findings of blood chemistry; N17.9 Acute kidney failure, unspecified; N18.9 Chronic kidney disease, unspecified; E11.22 Type 2 diabetes mellitus with diabetic chronic kidney disease; I12.9 Hypertensive chronic kidney disease with stage 1 through stage 4 chronic kidney disease, or unspecified chronic kidney disease; D63.1 Anemia in chronic kidney disease; Z20.822 Contact with and (suspected) exposure to COVID-19
CPT/HCPCS: 36415; 71046; 74176; 78580; 80053; 81001; 82607; 82728; 82746; 83540; 83550; 83690; 83735; 83880; 84466; 84484; 85025; 85380; 85610; 85730; 87077; 87086; 87186; 87636; 93005; 94640; 96365; 96366; 96372; 96375; 99285; A9270; A9540; C9113; G0378; J0696; J1650; J1956; J2405; J3480; J7040

== ENCOUNTER 2023-04-07 14:13 | Emergency (ER) | payer MEDICARE, SELFPAY ==
[2023-04-07] VITALS (20 sets, daily range): BP systolic 135–174; BP diastolic 63–106; PULSE 52–58; RESP 16–18; TEMP 36.3; O2SAT 96–100
--- NOTE | 2023-04-07 14:27 | ED.RECABL ---
HPI - Recheck/Abnormal Lab/Rx General Chief Complaint: Recheck/Abnormal Lab/Rx Stated Complaint: hypertension with REHMAN Time Seen by Provider: 04/07/23 14:23 History of Present Illness HPI narrative: Patient is a 77-year-old female with history of diet-controlled diabetes, hypertension here with generalized fatigue and headache. Patient notes that she has had some increasing fatigue over the last 1 week. This has been associated with a occipital headache which seems to relieve with Tylenol. She has checked her blood pressure at home and she has had several readings with SBP >200. She denies any numbness or weakness in her arms or legs, denies any vision changes. No prior history of stroke. No trauma. No known sick contacts. She denies any cough, congestion, fever, chills. No urinary symptoms. No GI symptoms. She notes that she was initially worried that it could be her blood pressure causing her symptoms however now she is wondering if it is her diabetes as she was taken off of her diabetic medications because of good control with diet. She does not check her blood sugars at home. Related Data Home Medications Medication Instructions Recorded Confirmed aspirin 81 mg tablet,delayed 81 mg PO DAILY 06/01/19 01/24/23 release Allergies Allergy/AdvReac Type Severity Reaction Status Date / Time amoxicillin Allergy Severe Anaphylactic Verified 04/07/23 14:14 Shock azithromycin Allergy Unknown Unknown Verified 04/07/23 14:14 Review of Systems Review of Systems: All systems reviewed & are unremarkable except as noted in HPI and below PMFSH Past Medical History Medical History Acquired absence of lung [part of] Bronchitis COPD (chronic obstructive pulmonary disease) Diabetic nephropathy associated with type 2 diabetes mellitus Essential (primary) hypertension Gastrocnemius tear Hiatal hernia History of bone density study (~03/14/16) dexa History of colon polyps History of measles History of mumps History of varicella Hypokalemia Hypothyroidism (acquired) Insomnia Irritable bowel syndrome with diarrhea LLL pneumonia Malignant neoplasm of unspecified part of left bronchus or lung Mixed hyperlipidemia Obesity (BMI 30.0-34.9) Odynophonia Osteopenia after menopause Other asthma Skin tags, multiple acquired Type 2 diabetes mellitus with hyperglycemia Surgical History Surgical History H/O total hysterectomy History of arthroscopy of knee (~2007) History of cardiac cath History of lobectomy of lung (~08/09/17) History of tubal ligation (~1983) Social History Social History Smoking packs per day: 0.75 Smoking cigarettes per day: 15.0 Years smoked: 35 Smoking pack-years: 26.25 Smoking status: Former smoker Tobacco type: cigarettes Alcohol intake: current Substance use: never Substance use type: does not use Lack of Transportation: No Lack of Food: Never True Current Housing: I Have Housing Concerned About Future Housing: No Difficulty Paying Gas/Electric Bills: No Difficulty Paying for Meds: No Currently Unemployed: No Education: High School Diploma/GED Difficulty w/ Childcare or Family Care: No Living arrangements: alone Spiritual care concerns: No Exam Narrative: GENERAL: Well-appearing, well-nourished, and in no acute distress. HEAD: Normocephalic, atraumatic. EYES: PERRLA and EOMI. ENT: Nares clear. Mucous membranes moist. NECK: Supple. CHEST: Clear to auscultation. No respiratory distress. HEART: Regular rate and rhythm. Normal peripheral pulses. ABDOMEN: Soft, nontender, nondistended. EXTREMITIES: Normal range of motion. No edema. SKIN: Warm, dry, no rash. NEURO: No focal deficits. No upper or lower extremity drift, no sensory deficits in arms, legs, face. Extraocular movements intact, román
[2023-04-07] MEDS: ACETAMINOPHEN 500 MG TABLET 1000 MG PO (15:16)
[2023-04-07 15:24] LABS: Glucose Point of Care 123 mg/dl (65-105)
[2023-04-07 15:37] LABS: Appearance Urine Clear (Clear); Bacteria Urine None Seen /hpf; Bilirubin Urine Negative (Negative); Blood Urine Negative (Negative); Color Urine Yellow (Yellow); Glucose Urine UA Negative (Negative); Ketones Urine Negative (Negative); Leukocyte Esterase Ur 1+ LEU/UL (Negative); Nitrate Urine Negative (Negative); Non Pathogenic Casts 0-2; Protein Urine Trace mg/dL (Negative); RBC Urine 0-2 /hpf (0-2); Specific Grav Ur 1.017 (1.001-1.035); Squamous Epithelial Cell Urine None seen /hpf (Few); Urobilinogen Urine 0.2 mg/dL (<2.0); pH Urine 5.5 (5.0-9.0)
[2023-04-07 15:44] LABS: Add Urine Microscopic? YES
[2023-04-07 16:07] LABS: Influenza A QL RT-PCR Negative (Negative); Influenza B QL RT-PCR Negative (Negative); RSV RNA, RT-PCR Negative (Negative); SARS-CoV-2 RNA PCR Negative (Negative)
== END 2023-04-07 16:28 | disposition home or self-care (01) ==
PROVIDERS: Emergency Provider Student in an Organized Health Care Education/Training Program; PCP Family Medicine
DX: G44.209 Tension-type headache, unspecified, not intractable (principal); I10 Essential (primary) hypertension; Z20.822 Contact with and (suspected) exposure to COVID-19; E11.21 Type 2 diabetes mellitus with diabetic nephropathy; E78.2 Mixed hyperlipidemia; E03.9 Hypothyroidism, unspecified; J45.998 Other asthma; J44.9 Chronic obstructive pulmonary disease, unspecified; M85.80 Other specified disorders of bone density and structure, unspecified site; K58.0 Irritable bowel syndrome with diarrhea; Z85.118 Personal history of other malignant neoplasm of bronchus and lung; Z86.010 Personal history of colon polyps; Z87.891 Personal history of nicotine dependence; Z90.2 Acquired absence of lung [part of]; Z90.710 Acquired absence of both cervix and uterus; Z79.82 Long term (current) use of aspirin
CPT/HCPCS: 81001; 82948; 87086; 87088; 87637; 99283; A9270

== ENCOUNTER 2024-09-01 13:35 | Outpatient (CLI) | payer MEDICARE, SELFPAY ==
--- NOTE | ~2024-09-01 | MM_ITS ---
EXAMINATION: MM screening viv BI w [facility] HISTORY: Screening TECHNIQUE: Craniocaudal and mediolateral oblique 3-D tomosynthesis images were obtained and synthetic 2-D images were generated. CAD analysis was submitted and interpreted. COMPARISON: Comparison to multiple prior studies sequentially, with oldest reviewed study dated 12/01. BREAST PARENCHYMAL COMPOSITION: Not Dense: The breasts are almost entirely fatty. FINDINGS: There is no evidence of suspicious mass, calcification, or architectural distortion to sugg est malignancy in either breast. There has been no suspicious interval change. IMPRESSION: 1. No mammographic evidence of malignancy. 2. Recommend routine screening mammography in one year. BI-RADS Category 1: Negative Reviewed, dictated and finalized at location A.
== END 2024-09-01 13:36 | disposition home or self-care (01) ==
LOC: MICIMG 13:36
PROVIDERS: PCP Family Medicine; Visit Provider Nurse Practitioner Family
DX: Z12.31 Encounter for screening mammogram for malignant neoplasm of breast (principal)
CPT/HCPCS: 77063; 77067